=== PATIENT | male | born 1945 | race Caucasian/White ===

== ENCOUNTER → 2021-03-03 | Outpatient (CLI) | payer MEDICARE ==
[~2021-03-03] MED LIST: AMLODIPINE BESY10 MG PO; AUGMENTIN 875-1 EACH PO; COUMADIN6 MG PO; DAILY MULTIPLE1 EACH PO; FOLIC ACID0.4 MG PO; LOPID600 MG PO; LOTENSIN20 MG PO; VITAMIN D250000 UNIT PO; ZOCOR 10 MG TAB10 MG PO
== END ==
LOC: KOH-I 08:14
DX: R10.9 Unspecified abdominal pain (principal); N13.2 Hydronephrosis with renal and ureteral calculous obstruction
CPT/HCPCS: 74176

== ENCOUNTER → 2021-06-01 | Outpatient (CLI) | payer MEDICARE | LOC: US 13:04 | DX: N13.2 Hydronephrosis with renal and ureteral calculous obstruction (principal) ==

== ENCOUNTER → 2021-10-05 | Outpatient (CLI) | payer MEDICARE | LOC: HEART 5 13:52 | DX: I10 Essential (primary) hypertension (principal); R00.2 Palpitations; R06.02 Shortness of breath ==

== ENCOUNTER → 2021-10-26 | Outpatient (CLI) | payer MEDICARE | LOC: ECHO 11:00 → HEART 5 14:58 → ECHO 10-29 11:45 | DX: I47.2 Ventricular tachycardia (principal); I70.0 Atherosclerosis of aorta; I27.20 Pulmonary hypertension, unspecified; I07.1 Rheumatic tricuspid insufficiency | CPT/HCPCS: 93306 ==

== ENCOUNTER → 2021-12-27 | Outpatient (CLI) | payer MEDICARE | LOC: KOH-I 12:38 | DX: I65.23 Occlusion and stenosis of bilateral carotid arteries (principal); Z86.73 Personal history of transient ischemic attack (TIA), and cerebral infarction without residual deficits | CPT/HCPCS: 93880 ==